=== PATIENT | female | born 1940 | race Caucasian/White ===

== ENCOUNTER 2017-05-18 16:02 | Emergency (ER) | payer MEDICARE, OTHER ==
[~2017-05-18] VITALS: Ht 154.9 cm; Wt 62.0 kg
[~2017-05-18 16:02] MED LIST: ARIMIDEX1 MG OR; ASPIRINCHW 81MG PO; AVAPRO75 MG PO; CALCIUM600 MG PO; CELEBREX100 MG OR; FOLIC ACID1 MG PO; ISOSORB MONO30 MG OR; LEVOTHYROXIN50 MCG OR; LEVOTHYROXIN75 MC1 PO; NEXIUM40 M1 PO; NITROSTAT0.4 MG SL; SIMVASTATIN40 MG PO; TOPROL XL25 MG PO; ULTRAM50 M1 PO; VITAMIN B-122500 MCG SL; VITAMIN D2000 UNI1 PO
[2017-05-18 18:02] LABS: URINE BILIRUBIN - DIPSTICK NEGATIVE (NEGATIVE); URINE BLOOD DIPSTICK NEGATIVE (NEGATIVE); URINE CLARITY CLEAR; URINE COLOR YELLOW; URINE GLUCOSE - DIPSTICK NEGATIVE (NEGATIVE); URINE KETONE NEGATIVE (NEGATIVE); URINE LEUK ESTERASE NEGATIVE (NEGATIVE); URINE NITRITE - DIPSTICK NEGATIVE (Negative); URINE PROTEIN - DIPSTICK NEGATIVE (NEG-TRACE); URINE SPECIFIC GRAVITY <=1.005; URINE UROBILINOGEN - DIPSTICK 0.2 E.U./dL (0.2)
[2017-05-18 18:03] LABS: HEMOGLOBIN 12.8 g/dl (12.0-16.0); IMMATURE GRANULOCYTES 0.5 % (0.0-1.0); MEAN CELL VOLUME 97.7 fL CALC (80.0-100.0); MEAN CORPUSCULAR HGB 32.1 pG CALC (26.0-32.0); MEAN CORPUSCULAR HGB CONC 32.8 g/L CALC (32.0-36.0); NEUT# 4.12 thou/uL (2.00-7.15); RED BLOOD COUNT 3.99 mill/uL (4.20-5.60); RED CELL DISTRI WIDTH 12.9 % (11.5-15.5)
[2017-05-18 18:19] LABS: ALBUMIN 4.3 g/dL (3.2-5.0); ALKALINE PHOSPHATASE 69 u/l (38-126); ANION GAP 18 (6-22 (CALC)); BILIRUBIN, TOTAL 0.7 mg/dL (0.0-1.4); BUN 11 mg/dL (8-23); BUN/CREATININE RATIO 24 (12-20 (CALC)); CALCIUM 9.3 mg/dL (8.4-10.2); CARBON DIOXIDE 24 mmol/l (22-30); CHLORIDE 108 mmol/l (95-108); CREATININE 0.5 mg/dL (0.5-1.0); GFR > 60 ML/MIN (>=60 (CALC)); GFR FOR AFR.AMER. > 60 ML/MIN (>=60 (CALC)); GLUCOSE 88 mg/dL (82-115); POTASSIUM 4.7 mmol/l (3.5-5.1); SGOT/AST 41 u/l (9-36); SGPT/ALT 26 u/l (11-66); SODIUM 145 mmol/l (137-146); TOTAL PROTEIN 7.3 g/dL (6.3-8.2)
[2017-05-18 18:32] LABS: MYOGLOBIN 51 ng/mL (0 - 62)
[2017-05-18 18:40] VITALS: BP 155/77
== END 2017-05-18 18:45 | disposition left against medical advice (07) ==
LOC: ED 16:02
PROVIDERS: Emergency Medicine
PROC: 0HQ0XZZ Repair Scalp Skin, External Approach (ICD-10-PCS; principal; 2017-05-18)
DX: S01.01XA Laceration without foreign body of scalp, initial encounter (principal); I10 Essential (primary) hypertension; E03.9 Hypothyroidism, unspecified; K21.9 Gastro-esophageal reflux disease without esophagitis; W19.XXXA Unspecified fall, initial encounter; Y92.009 Unspecified place in unspecified non-institutional (private) residence as the place of occurrence of the external cause; Z91.81 History of falling; Z85.3 Personal history of malignant neoplasm of breast; Z92.3 Personal history of irradiation

== ENCOUNTER 2017-05-20 11:30 | Emergency (ER) | payer MEDICARE, OTHER ==
[~2017-05-20] VITALS: Ht 154.9 cm; Wt 57.0 kg
[2017-05-20 12:32] VITALS: BP 159/87
== END 2017-05-20 12:32 | disposition home or self-care (01) ==
LOC: ED 11:30
DX: S01.01XD Laceration without foreign body of scalp, subsequent encounter (principal); I10 Essential (primary) hypertension; E03.9 Hypothyroidism, unspecified; K21.9 Gastro-esophageal reflux disease without esophagitis; Z85.3 Personal history of malignant neoplasm of breast; Z92.3 Personal history of irradiation; W19.XXXD Unspecified fall, subsequent encounter

== ENCOUNTER 2017-05-26 09:10 | Emergency (ER) | payer MEDICARE, OTHER ==
[~2017-05-26] VITALS: Ht 154.9 cm; Wt 68.2 kg
[2017-05-26 09:34] VITALS: BP 181/93
== END 2017-05-26 09:40 | disposition home or self-care (01) ==
LOC: ED 09:10
DX: S01.01XD Laceration without foreign body of scalp, subsequent encounter (principal); I10 Essential (primary) hypertension; E03.9 Hypothyroidism, unspecified; K21.9 Gastro-esophageal reflux disease without esophagitis; X58.XXXD Exposure to other specified factors, subsequent encounter; Z92.3 Personal history of irradiation; Z85.3 Personal history of malignant neoplasm of breast

== ENCOUNTER 2017-06-07 10:28 | Emergency (ER) | payer MEDICARE, OTHER ==
[~2017-06-07] VITALS: Ht 152.4 cm; Wt 57.3 kg
[2017-06-07] MEDS ORDERED: KEFLEX500 MG PO (11:22)
[2017-06-07 11:40] VITALS: BP 146/83
== END 2017-06-07 11:56 | disposition home or self-care (01) ==
LOC: ED 10:28
PROC: 0HQ0XZZ Repair Scalp Skin, External Approach (ICD-10-PCS; principal; 2017-06-07)
DX: S01.01XD Laceration without foreign body of scalp, subsequent encounter (principal); E03.9 Hypothyroidism, unspecified; I10 Essential (primary) hypertension; K21.9 Gastro-esophageal reflux disease without esophagitis; Z85.3 Personal history of malignant neoplasm of breast; Z92.3 Personal history of irradiation; X58.XXXD Exposure to other specified factors, subsequent encounter

== ENCOUNTER 2017-06-11 08:42 | Emergency (ER) | payer MEDICARE, OTHER ==
[~2017-06-11] VITALS: Ht 152.4 cm; Wt 65.0 kg
[~2017-06-11 08:42] MED LIST changes: +KEFLEX500 MG PO
[2017-06-11 08:56] VITALS: BP 150/80
== END 2017-06-11 08:55 | disposition home or self-care (01) ==
LOC: ED 08:42
DX: S01.01XD Laceration without foreign body of scalp, subsequent encounter (principal); E03.9 Hypothyroidism, unspecified; I10 Essential (primary) hypertension; K21.9 Gastro-esophageal reflux disease without esophagitis; X58.XXXD Exposure to other specified factors, subsequent encounter; Z85.3 Personal history of malignant neoplasm of breast; Z92.3 Personal history of irradiation

== ENCOUNTER 2017-06-18 11:00 | Emergency (ER) | payer MEDICARE, OTHER ==
[~2017-06-18] VITALS: Ht 152.4 cm; Wt 55.0 kg
[2017-06-18 11:16] VITALS: BP 150/87
== END 2017-06-18 11:35 | disposition home or self-care (01) ==
LOC: ED 11:00
DX: S01.01XD Laceration without foreign body of scalp, subsequent encounter (principal); Z48.02 Encounter for removal of sutures

== ENCOUNTER 2017-06-29 10:20 | Emergency (ER) | payer MEDICARE, OTHER ==
[~2017-06-29] VITALS: Ht 152.4 cm; Wt 50.0 kg
[2017-06-29] MEDS ORDERED: KEFLEX500 MG PO (11:11)
[2017-06-29 11:20] VITALS: BP 118/77
== END 2017-06-29 11:29 | disposition home or self-care (01) ==
LOC: ED 10:20
PROC: 0HQEXZZ Repair Left Lower Arm Skin, External Approach (ICD-10-PCS; principal; 2017-06-29)
DX: S51.812A Laceration without foreign body of left forearm, initial encounter (principal); W45.8XXA Other foreign body or object entering through skin, initial encounter; Y93.9 Activity, unspecified; Y92.018 Other place in single-family (private) house as the place of occurrence of the external cause; W01.0XXA Fall on same level from slipping, tripping and stumbling without subsequent striking against object, initial encounter

== ENCOUNTER 2017-07-14 10:04 | Emergency (ER) | payer MEDICARE, OTHER ==
[~2017-07-14] VITALS: Ht 152.4 cm; Wt 60.0 kg
[2017-07-14] MEDS ORDERED: BACTRIM DS1 TAB PO (10:17)
[2017-07-14 10:31] VITALS: BP 135/77
== END 2017-07-14 10:35 | disposition home or self-care (01) ==
LOC: ED 10:04
DX: S51.812D Laceration without foreign body of left forearm, subsequent encounter (principal); I10 Essential (primary) hypertension; E03.9 Hypothyroidism, unspecified; K21.9 Gastro-esophageal reflux disease without esophagitis; X58.XXXD Exposure to other specified factors, subsequent encounter; Z85.3 Personal history of malignant neoplasm of breast; Z92.3 Personal history of irradiation

== ENCOUNTER 2018-07-31 22:19 | Emergency (ER) | payer MEDICARE, OTHER ==
[~2018-07-31] VITALS: Ht 152.4 cm; Wt 55.4 kg
[~2018-07-31 22:19] MED LIST changes: +BACTRIM DS1 TAB PO
[2018-07-31] MEDS ORDERED: DONEPEZIL5 MG PO (22:48)
[2018-07-31] MEDS ORDERED: SPRITAM500 MG PO (22:50)
[2018-07-31 23:01] LABS: HEMATOCRIT 39.8 % (37.0-47.0); HEMOGLOBIN 12.9 g/dl (12.0-16.0); IMMATURE GRANULOCYTES 0.3 % (0.0-5.0); MEAN CELL VOLUME 96.6 fL CALC (80.0-100.0); MEAN CORPUSCULAR HGB 31.3 pG CALC (26.0-32.0); MEAN CORPUSCULAR HGB CONC 32.4 g/L CALC (32.0-36.0); NEUT# 4.02 thou/uL (2.00-7.15); RED BLOOD COUNT 4.12 mill/uL (4.20-5.60); RED CELL DISTRI WIDTH 12.3 % (11.5-15.5); URINE BILIRUBIN - DIPSTICK NEGATIVE (NEGATIVE); URINE BLOOD DIPSTICK NEGATIVE (NEGATIVE); URINE COLOR YELLOW; URINE GLUCOSE - DIPSTICK NEGATIVE (NEGATIVE); URINE KETONE NEGATIVE (NEGATIVE); URINE LEUK ESTERASE NEGATIVE (NEGATIVE); URINE NITRITE - DIPSTICK NEGATIVE (Negative); URINE PROTEIN - DIPSTICK NEGATIVE (NEG-TRACE); URINE SPECIFIC GRAVITY <=1.005; URINE UROBILINOGEN - DIPSTICK 0.2 E.U./dL (0.2)
[2018-07-31 23:02] LABS: URINE CLARITY SL CLOUDY
[2018-07-31 23:17] LABS: ALKALINE PHOSPHATASE 65 u/l (38-126); BILIRUBIN, TOTAL 0.5 mg/dL (0.0-1.4); BUN 11 mg/dL (8-23); BUN/CREATININE RATIO 24 (12-20 (CALC)); CARBON DIOXIDE 26 mmol/l (22-30); CHLORIDE 105 mmol/l (95-108); CREATININE 0.5 mg/dL (0.5-1.0); GFR > 60 ML/MIN (>=60 (CALC)); GFR FOR AFR.AMER. > 60 ML/MIN (>=60 (CALC)); POTASSIUM 3.7 mmol/l (3.5-5.1); SGOT/AST 19 u/l (9-36); TOTAL PROTEIN 7.2 g/dL (6.3-8.2)
[2018-07-31 23:19] LABS: ALBUMIN 4.1 g/dL (3.2-5.0); ANION GAP 14 (6-22 (CALC)); SODIUM 141 mmol/l (137-146)
[2018-07-31 23:29] LABS: MYOGLOBIN 25 ng/mL (0 - 62)
[2018-07-31] MEDS ORDERED: ANTIVERT PO (23:49)
[2018-08-01 00:40] VITALS: BP 148/72
== END 2018-08-01 00:40 | disposition home or self-care (01) ==
LOC: ED 22:19
PROVIDERS: Family Medicine
DX: H83.02 Labyrinthitis, left ear (principal); R42 Dizziness and giddiness; Y93.K1 Activity, walking an animal; Y92.009 Unspecified place in unspecified non-institutional (private) residence as the place of occurrence of the external cause

== ENCOUNTER → 2018-11-15 | Outpatient (REF) | payer MEDICARE, OTHER ==
[~2018-11-15] MED LIST changes: +ANTIVERT PO; +DONEPEZIL5 MG PO; +SPRITAM500 MG PO
== END | disposition home or self-care (01) ==
LOC: STRESS 09:19 → NUCMED 09:45
PROVIDERS: ATTEND Internal Medicine
DX: I25.119 Atherosclerotic heart disease of native coronary artery with unspecified angina pectoris (principal); I10 Essential (primary) hypertension; R94.31 Abnormal electrocardiogram [ECG] [EKG]
CPT/HCPCS: A9502; J2785

== ENCOUNTER 2019-06-21 09:04 | Emergency (ER) | payer MEDICARE, OTHER ==
[~2019-06-21] VITALS: Ht 152.4 cm; Wt 60.0 kg
[~2019-06-21 09:04] MED LIST changes: +ASPIRIN81 MG PO; +B-12 INJECTION; +KEPPRA250 M1 PO; +LOSARTAN POT50 MG PO
[2019-06-21 11:20] LABS: ALBUMIN 4.3 g/dL (3.2-5.0); ALKALINE PHOSPHATASE 79 u/l (38-126); AMYLASE 38 u/l (30-110); ANION GAP 15 (6-22 (CALC)); BUN 12 mg/dL (8-23); BUN/CREATININE RATIO 21 (12-20 (CALC)); CARBON DIOXIDE 24 mmol/l (22-30); CHLORIDE 104 mmol/l (95-108); CPK 33 u/l (30-165); CREATININE 0.6 mg/dL (0.5-1.0); GFR > 60 ML/MIN (>=60 (CALC)); GFR FOR AFR.AMER. > 60 ML/MIN (>=60 (CALC)); LIPASE 52 u/l (23-300); MAGNESIUM 1.7 mg/dL (1.6-2.3); POTASSIUM 4.1 mmol/l (3.5-5.1); SGOT/AST 24 u/l (9-36); SODIUM 139 mmol/l (137-146); TOTAL PROTEIN 7.1 g/dL (6.3-8.2)
[2019-06-21 11:27] LABS: ETHYL ALCOHOL 0 mg/dl (0-30)
[2019-06-21 11:30] LABS: HEMATOCRIT 41.4 % (37.0-47.0); HEMOGLOBIN 13.3 g/dl (12.0-16.0); IMMATURE GRANULOCYTES 0.8 % (0.0-5.0); MEAN CELL VOLUME 96.5 fL CALC (80.0-100.0); MEAN CORPUSCULAR HGB CONC 32.1 g/L CALC (32.0-36.0); NEUT# 8.83 thou/uL (2.00-7.15); RED BLOOD COUNT 4.29 mill/uL (4.20-5.60); RED CELL DISTRI WIDTH 13.6 % (11.5-15.5)
[2019-06-21 11:54] LABS: ACT PARTIAL THROMBO TIME 24.5 SECONDS (20.0-32.5); INTERNATIONAL NORMALIZED RATIO 0.9 RATIO (0.7-1.3); PROTHROMBIN TIME 9.7 SECONDS (9.0-12.5)
[2019-06-21 13:27] LABS: URINE BILIRUBIN - DIPSTICK NEGATIVE (NEGATIVE); URINE BLOOD DIPSTICK TRACE-INTACT (NEGATIVE); URINE COLOR YELLOW; URINE GLUCOSE - DIPSTICK NEGATIVE (NEGATIVE); URINE KETONE TRACE mg/dL (NEGATIVE); URINE LEUK ESTERASE NEGATIVE (NEGATIVE); URINE NITRITE - DIPSTICK NEGATIVE (Negative); URINE PROTEIN - DIPSTICK NEGATIVE (NEG-TRACE); URINE SPECIFIC GRAVITY 1.025; URINE UROBILINOGEN - DIPSTICK 0.2 E.U./dL (0.2)
[2019-06-21 13:28] LABS: BARBITURATES NEGATIVE (NEGATIVE); COCAINE NEGATIVE (NEGATIVE); METHADONE NEGATIVE (NEGATIVE); OXCYCODONE NEGATIVE (NEGATIVE); TETRAHYDROCANNABIONOL NEGATIVE (NEGATIVE); TRICYLIC ANTIDEPRESSANTS NEGATIVE (NEGATIVE)
[2019-06-21] MEDS ORDERED: LEVOTHYROXIN50 MCG PO (15:03)
[2019-06-21] MEDS ORDERED: DONEPEZIL5 MG PO (15:03)
[2019-06-21 16:25] VITALS: BP 131/63
== END 2019-06-21 16:25 | disposition short-term general hospital (02) ==
LOC: ED 09:04
DX: R90.89 Other abnormal findings on diagnostic imaging of central nervous system (principal); R53.1 Weakness; M25.531 Pain in right wrist; I10 Essential (primary) hypertension; F03.90 Unspecified dementia, unspecified severity, without behavioral disturbance, psychotic disturbance, mood disturbance, and anxiety; Z86.73 Personal history of transient ischemic attack (TIA), and cerebral infarction without residual deficits
CPT/HCPCS: Q9967

== ENCOUNTER 2019-11-21 | Emergency (ER) | payer MEDICARE, OTHER ==
[~2019-11-21] MED LIST changes: +LEVOTHYROXIN50 MCG PO
[2019-11-21 09:53] LABS: HEMATOCRIT 38.3 % (37.0-47.0); HEMOGLOBIN 12.5 g/dl (12.0-16.0); IMMATURE GRANULOCYTES 1.1 % (0.0-5.0); MEAN CORPUSCULAR HGB 31.6 pG CALC (26.0-32.0); MEAN CORPUSCULAR HGB CONC 32.6 g/L CALC (32.0-36.0); NEUT# 6.11 thou/uL (2.00-7.15); RED BLOOD COUNT 3.95 mill/uL (4.20-5.60); RED CELL DISTRI WIDTH 13.6 % (11.5-15.5)
[2019-11-21 09:59] LABS: GFR > 60 ML/MIN (>=60 (CALC)); GFR FOR AFR.AMER. > 60 ML/MIN (>=60 (CALC))
[2019-11-21 10:12] LABS: ALKALINE PHOSPHATASE 64 u/l (38-126); BUN 13 mg/dL (8-23); BUN/CREATININE RATIO 23 (12-20 (CALC)); CARBON DIOXIDE 26 mmol/l (22-30); CHLORIDE 97 mmol/l (95-108); CREATININE 0.6 mg/dL (0.5-1.0); GFR > 60 ML/MIN (>=60 (CALC)); GFR FOR AFR.AMER. > 60 ML/MIN (>=60 (CALC)); LIPASE 33 u/l (23-300); SGOT/AST 26 u/l (9-36); TOTAL PROTEIN 6.7 g/dL (6.3-8.2)
[2019-11-21 10:14] LABS: ANION GAP 12 (6-22 (CALC)); BILIRUBIN, TOTAL 0.9 mg/dL (0.0-1.4); POTASSIUM 4.1 mmol/l (3.5-5.1); SODIUM 131 mmol/l (137-146)
[2019-11-21 11:31] LABS: URINE BILIRUBIN - DIPSTICK NEGATIVE (NEGATIVE); URINE COLOR YELLOW; URINE GLUCOSE - DIPSTICK NEGATIVE (NEGATIVE); URINE KETONE TRACE mg/dL (NEGATIVE); URINE LEUK ESTERASE NEGATIVE (NEGATIVE); URINE NITRITE - DIPSTICK NEGATIVE (Negative); URINE PROTEIN - DIPSTICK NEGATIVE (NEG-TRACE); URINE UROBILINOGEN - DIPSTICK 0.2 E.U./dL (0.2)
[2019-11-21 11:32] LABS: URINE BLOOD DIPSTICK TRACE (NEGATIVE)
[2019-11-21] MEDS ORDERED: VALSARTAN80 MG PO (11:46)
[2019-11-21] MEDS ORDERED: LEVETIRACETAM500 M1 PO (11:48)
[2019-11-21] MEDS ORDERED: MONTELUKAST SOD10 MG PO (11:49)
[2019-11-21] MEDS ORDERED: TRAZODONE50 MG PO (11:50)
[2019-11-21] MEDS ORDERED: TESSALON PER100 MG PO (11:51)
[2019-11-21] MEDS ORDERED: OMEPRAZOLE DR20 MG (11:52)
[2019-11-21] MEDS ORDERED: PREDNISONE5 MG PO (11:52)
== END 2019-11-21 12:15 | disposition home or self-care (01) ==
PROVIDERS: Family Medicine
DX: R31.9 Hematuria, unspecified (principal); R10.11 Right upper quadrant pain; R10.13 Epigastric pain; I10 Essential (primary) hypertension; F03.90 Unspecified dementia, unspecified severity, without behavioral disturbance, psychotic disturbance, mood disturbance, and anxiety; Z86.73 Personal history of transient ischemic attack (TIA), and cerebral infarction without residual deficits
CPT/HCPCS: Q9967

== ENCOUNTER → 2021-05-27 | Outpatient (REF) | payer MEDICARE, OTHER ==
[~2021-05-27] MED LIST changes: +CLOBETASOL0.051 EX; +LEVETIRACETAM500 M1 PO; +LOVASTATIN40 M1 PO; +METOPROL TAR25 MG PO; +MINOCYCLINE HC100 MG PO; +MONTELUKAST SOD10 MG PO; +OMEPRAZOLE DR20 MG; +PREDNISONE5 MG PO; +SYNTHROID75 MCG PO; +TESSALON PER100 MG PO; +TRAZODONE50 MG PO; +VALSARTAN80 MG PO; +VITAMIN D320 MCG
== END | disposition home or self-care (01) ==
LOC: DI 11:26
PROVIDERS: ATTEND Nurse Practitioner
DX: M25.531 Pain in right wrist (principal); M25.532 Pain in left wrist

== ENCOUNTER 2021-06-09 08:10 | Observation (INO) | payer MEDICARE, OTHER ==
[~2021-06-09] VITALS: Ht 152.4 cm; Wt 57.6 kg
[2021-06-09] VITALS (8 sets, daily range): BP systolic 103–136; BP diastolic 57–76
[~2021-06-09 08:10] MED LIST changes: +DIOVAN80 MG PO; +LEVETIRACETAM500 MG PO; +OMEPRAZOLE10 MG PO
--- NOTE | 2021-06-09 11:45 | NUR ---
BEDSIDE REPORT RECEIVED FROM OR NURSE MAI. PT ESCORTED TO FLOOR VIA STRETCHER.
--- NOTE | 2021-06-09 14:30 | NUR ---
PT IN BED SITTING UP. REPORTED TO HAVE ATE MOST OF HER TRAY BUT DIDNT HAVE MUCH OF AN APPETITE. SN ENFORCED INCENTIVE SPIROMETER USE/TEACHING. PT VERBALIZES UNDERSTANDING HAS NO COMPLAINTS/DISTRESS AT THIS TIME.
--- NOTE | 2021-06-09 21:22 | NUR ---
Pt assessment completed and medications administered at this time. Dressing cdi for peace drains, drains w/bulb suction, red bloody output. Surgical incision durmabond closed, cdi.
--- NOTE | 2021-06-09 23:14 | NUR ---
PT SITTING ON THE BSC WITH SUMMER BABYSITTER AT SIDE. SHE REPORTS FEELING STOOL NEEDING TO PASS, BUT IS UNABLE TO PASS HER STOOL. DENIES FEELING BLOATED, OFFERED TO WALK HALLWAY, SHE REPORTS SHE CAN TELL STOOL IS "NEEDING TO PASS." SHE REPORTS FEELING NAUSEA AND URGE TO VOMIT, EMESIS BAG IN HAND. PT WAS MEDICATED AT THIS TIME FOR NAUSEA. MICHAEL DRAINS X2 TO BULB SUCTION, DRAINING RED BLOODY DRAINAGE. DRESSING TO L.BREAST AREA CDI AT THIS TIME AND INCISION INTACT.
[2021-06-10] VITALS: BP 138/72
--- NOTE | 2021-06-10 00:05 | NUR ---
Pt called wanting to sit on the BSC to attempt BM. Pt assessed, there is no s/o impaction at this time. Pt keeps saying "I can feel it." I encouarged her to sit for a few minutes on BSC and then try to walk around with our standby assistance.
--- NOTE | 2021-06-10 01:00 | NUR ---
CAMPUS MANAGER reported that pt is upset thinking she needs an enema. pt has been assessed to not have stool compacting. Upon talking with the pt she started talking about needing to go home, stating that the doctor promised her she would only be here for one night, I reassured her that it had not even been one night. She stated that she "cannot be in the hospital and cannot be sick" because she needs to be home with her . We discussed the timeline since surgery, discussed typical care and process and the need for her to care for herself post-op. She agreed that she wanted to walk to attempt to pass gas. Knurling Machine Tender ambulated pt in hallway, stable on her feet, denies dizziness. Pt denies pain greater than 2/10, just kept saying, I need to have a BM, I can tell. Pt spent 30 minutes sitting on bsc attempting for stool passage to no avail prior to my entering the room. Pt now agreed to try and get rest in the bed. Denies any pain or discomfort greater than 2/10.
[2021-06-10 04:00] VITALS: BP 103/61
--- NOTE | 2021-06-10 04:00 | NUR ---
Pt is sleeping, no s/o distrsses noted. Call light w/in reach.
--- NOTE | 2021-06-10 05:24 | NUR ---
pt medicated as orders provide. IV J-loop placed to IV site and OR tubing removed. Pt was sleeping, but awoke to my voice.
[2021-06-10 07:15] VITALS: BP 114/66
--- NOTE | 2021-06-10 07:15 | NUR ---
BEDSIDE REPORT RECEIVED, PT AWAKE WALKING IN ROOM. PT STATED SHE WAS ALL WET AND ASKED IF THE FLUIDS WERE A CONTINUOUS WATER SUPPLY. STATED HER BED WAS SOAKED WELL. IV WAS DISLODGED AND ON FLOOR. PT CONFUSED, STATED THAT THEY WENT IN MY BRAIN, SN REORIEDNTED AND PT VERBALIZED UNDERSTANDING AND SAID SHE PREVIOUSLY HAD BRAIN SURGERY AND WAS CONFUSED TO WHICH SURGERY THIS WAS AND WHAT HER DRAINS ARE FOR. PT WAS ABLE TO BE REORIENTED. SEIZURE PRECAUTIONS IN PLACE. PT IN CHAIR WITH SIDE TABLE AWAITING BREAKFAST WATCHING TV, WILL CONTUE TO MONITOR.
[2021-06-10] MEDS ORDERED: PERCOCET 5/325M1 TAB PO (08:25)
--- NOTE | 2021-06-10 08:40 | NUR ---
SN NOTICED LAST DOSE OF ANCEF WAS NOT ADMIN D/T PT PULLING IV, REPORTED TO MD. CARDOZA TO D/C PER DR TORRES.
[2021-06-10 09:16] VITALS: BP 114/66
--- NOTE | 2021-06-10 09:26 | NUR ---
Discharge instructions given. Patient verbalizes understanding of same. Discharged in stable condition via Wheelchair to Home with family. All belongings sent with pt. pt walked off floor wo escort, stated she didnt want to wait any longer.
== END 2021-06-10 09:26 | disposition home health service (06) ==
LOC: ORM 08:10 → MS2 10:39
PROVIDERS: ADMIT Surgery; ATTEND Surgery
PROC: 0HTT0ZZ Resection of Right Breast, Open Approach (ICD-10-PCS; principal; 2021-06-09)
PROC: 07B50ZX Excision of Right Axillary Lymphatic, Open Approach, Diagnostic (ICD-10-PCS; 2021-06-09)
DX: C50.911 Malignant neoplasm of unspecified site of right female breast (principal); Z17.0 Estrogen receptor positive status [ER+]; Z86.73 Personal history of transient ischemic attack (TIA), and cerebral infarction without residual deficits
CPT/HCPCS: J0131; J2710

== ENCOUNTER 2021-06-20 10:43 | Emergency (ER) | payer MEDICARE, OTHER ==
[~2021-06-20] VITALS: Ht 152.4 cm; Wt 57.0 kg
[~2021-06-20 10:43] MED LIST changes: +PERCOCET 5/325M1 TAB PO
[2021-06-20 11:25] VITALS: BP 123/75
[2021-06-20 11:39] LABS: HEMOGLOBIN 11.8 g/dl (12.0-16.0); IMMATURE GRANULOCYTES 0.3 % (0.0-5.0); MEAN CELL VOLUME 96.4 fL CALC (80.0-100.0); MEAN CORPUSCULAR HGB 30.7 pG CALC (26.0-32.0); MEAN CORPUSCULAR HGB CONC 31.9 g/dL CAL (32.0-36.0); NEUT# 6.77 thou/uL (2.00-7.15); RED BLOOD COUNT 3.84 mill/uL (4.20-5.60)
[2021-06-20 11:56] LABS: ANION GAP 8 (6-22 (CALC)); BUN 7 mg/dL (8-23); BUN/CREATININE RATIO 11 (12-20 (CALC)); CARBON DIOXIDE 27 mmol/l (22-30); CHLORIDE 103 mmol/l (95-108); CREATININE 0.6 mg/dL (0.5-1.0); GFR > 60 ML/MIN (>=60 (CALC)); GFR FOR AFR.AMER. > 60 ML/MIN (>=60 (CALC)); SODIUM 133 mmol/l (137-146)
[2021-06-20] MEDS ORDERED: OMNI-PAC300 MG PO (12:23)
== END 2021-06-20 12:34 | disposition home or self-care (01) ==
LOC: ED 10:43
PROVIDERS: Family Medicine
DX: R07.89 Other chest pain (principal); C50.911 Malignant neoplasm of unspecified site of right female breast; F32.9 Major depressive disorder, single episode, unspecified; Z90.11 Acquired absence of right breast and nipple; Z86.73 Personal history of transient ischemic attack (TIA), and cerebral infarction without residual deficits

== ENCOUNTER 2021-07-15 11:06 | Emergency (ER) | payer MEDICARE, OTHER ==
[~2021-07-15] VITALS: Ht 152.4 cm; Wt 75.0 kg
[~2021-07-15 11:06] MED LIST changes: +OMNI-PAC300 MG PO
[2021-07-15 12:02] LABS: HEMATOCRIT 38.2 % (37.0-47.0); IMMATURE GRANULOCYTES 0.7 % (0.0-5.0); MEAN CELL VOLUME 95.3 fL CALC (80.0-100.0); MEAN CORPUSCULAR HGB 29.9 pG CALC (26.0-32.0); MEAN CORPUSCULAR HGB CONC 31.4 g/dL CAL (32.0-36.0); NEUT# 5.3 thou/uL (2.00-7.15); RED BLOOD COUNT 4.01 mill/uL (4.20-5.60); RED CELL DISTRI WIDTH 13.4 % (11.5-15.5)
[2021-07-15] MEDS ORDERED: NITROGLYCER0.2 MG/H1 TD (12:02)
[2021-07-15 12:03] LABS: URINE BILIRUBIN - DIPSTICK NEGATIVE (NEGATIVE); URINE BLOOD DIPSTICK TRACE-INTACT (NEGATIVE); URINE COLOR YELLOW; URINE GLUCOSE - DIPSTICK NEGATIVE (NEGATIVE); URINE KETONE NEGATIVE (NEGATIVE); URINE LEUK ESTERASE TRACE (NEGATIVE); URINE PROTEIN - DIPSTICK NEGATIVE (NEG-TRACE); URINE SPECIFIC GRAVITY 1.025; URINE UROBILINOGEN - DIPSTICK 0.2 E.U./dL (0.2)
[2021-07-15 12:08] LABS: URINE NITRITE - DIPSTICK NEGATIVE (Negative)
[2021-07-15 12:20] LABS: ALBUMIN 3.8 g/dL (3.2-5.0); ALKALINE PHOSPHATASE 94 u/l (38-126); AMYLASE 54 u/l (30-110); ANION GAP 12 (6-22 (CALC)); BILIRUBIN, TOTAL 0.5 mg/dL (0.0-1.4); BUN 8 mg/dL (8-23); BUN/CREATININE RATIO 12 (12-20 (CALC)); CARBON DIOXIDE 28 mmol/l (22-30); CHLORIDE 103 mmol/l (95-108); CREATININE 0.7 mg/dL (0.5-1.0); GFR > 60 ML/MIN (>=60 (CALC)); GFR FOR AFR.AMER. > 60 ML/MIN (>=60 (CALC)); LIPASE 37 u/l (23-300); POTASSIUM 3.8 mmol/l (3.5-5.1); SGOT/AST 21 u/l (9-36); SODIUM 139 mmol/l (137-146)
[2021-07-15 12:32] LABS: MYOGLOBIN 40 ng/mL (0 - 62)
[2021-07-15 14:17] VITALS: BP 137/98
== END 2021-07-15 14:17 | disposition home or self-care (01) ==
LOC: ED 11:06
PROVIDERS: Emergency Medicine
DX: R07.89 Other chest pain (principal); I10 Essential (primary) hypertension; C50.911 Malignant neoplasm of unspecified site of right female breast; F32.A Depression, unspecified; Z86.73 Personal history of transient ischemic attack (TIA), and cerebral infarction without residual deficits; Z90.11 Acquired absence of right breast and nipple
CPT/HCPCS: Q9967

== ENCOUNTER 2021-10-18 10:17 | Observation (INO) | payer MEDICARE, OTHER ==
[~2021-10-18] VITALS: Ht 152.4 cm; Wt 56.6 kg
[~2021-10-18 10:17] MED LIST changes: +NITROGLYCER0.2 MG/H1 TD
[2021-10-18 12:24] LABS: HEMATOCRIT 40.9 % (37.0-47.0); HEMOGLOBIN 12.6 g/dl (12.0-16.0); IMMATURE GRANULOCYTES 0.2 % (0.0-5.0); MEAN CELL VOLUME 92.3 fL CALC (80.0-100.0); MEAN CORPUSCULAR HGB 28.4 pG CALC (26.0-32.0); MEAN CORPUSCULAR HGB CONC 30.8 g/dL CAL (32.0-36.0); NEUT# 4.93 thou/uL (2.00-7.15); RED BLOOD COUNT 4.43 mill/uL (4.20-5.60); RED CELL DISTRI WIDTH 14.5 % (11.5-15.5); URINE BLOOD DIPSTICK TRACE-LYSED (NEGATIVE); URINE COLOR YELLOW; URINE GLUCOSE - DIPSTICK NEGATIVE (NEGATIVE); URINE KETONE 40 mg/dL (NEGATIVE); URINE LEUK ESTERASE NEGATIVE (NEGATIVE); URINE PH 5.5 (4.5-8.0); URINE PROTEIN - DIPSTICK NEGATIVE (NEG-TRACE); URINE SPECIFIC GRAVITY >=1.030; URINE UROBILINOGEN - DIPSTICK 0.2 E.U./dL (0.2)
[2021-10-18 12:25] LABS: URINE NITRITE - DIPSTICK NEGATIVE (Negative)
[2021-10-18 12:26] LABS: URINE BILIRUBIN - DIPSTICK NEGATIVE (NEGATIVE)
[2021-10-18 12:40] LABS: ALBUMIN 3.8 g/dL (3.2-5.0); ALKALINE PHOSPHATASE 74 u/l (38-126); ANION GAP 13 (6-22 (CALC)); BILIRUBIN, TOTAL 0.8 mg/dL (0.0-1.4); BUN 13 mg/dL (8-23); BUN/CREATININE RATIO 20 (12-20 (CALC)); CARBON DIOXIDE 27 mmol/l (22-30); CHLORIDE 102 mmol/l (95-108); CREATININE 0.6 mg/dL (0.5-1.0); GFR > 60 ML/MIN (>=60 (CALC)); GFR FOR AFR.AMER. > 60 ML/MIN (>=60 (CALC)); POTASSIUM 4.5 mmol/l (3.5-5.1); SGOT/AST 27 u/l (9-36); SODIUM 137 mmol/l (137-146); TOTAL PROTEIN 6.9 g/dL (6.3-8.2)
[2021-10-18 13:53] LABS: MYOGLOBIN 73 ng/mL (0 - 62)
--- NOTE | 2021-10-18 18:40 | NUR ---
PATIENT HAD RIGHT SIDE PAIN. NEURO NIHSS SCORE A 1 ONLY DUE TO RIGHT LEG PAIN WITH MOVEMENT. PATIENT ORDER FOR LUNCH TRAY BECAUSE SHE WAS HUNGRY, BUT ONLY ATE A COUPLE BITES. SHORT TERM MEMORY ISSUES.
--- NOTE | 2021-10-18 19:31 | NUR ---
REPORT GIVEN TO KAYLA FOR [facility] ROOM 270.
--- NOTE | 2021-10-18 19:50 | NUR ---
TO FLOOR VIA STRETCHER.
--- NOTE | 2021-10-18 20:00 | NUR ---
RECIEVED REPORT FROM CORA STRANGE. PT ARRIVED TO [facility] ROOM 270 VIA STRETCHER ACCOMPAINED BY ER STAFF. PT IS A/OX3 WITH SOME CONFUSION. ASSESSMENT COMPLETED. RESPIRATIONS ARE EVEN AND UNLABORED ON ROOM AIR. LUNG SOUNDS ARE CLEAR. HEART RHYTHM NORMAL WITH TELE IN PLACE, SR PER ER MONITORING. BOWEL SOUNDS ACTIVE, LBM 10/18/21. PULSES STRONG. #20G RAC FLUSHED, SITE APPEARS HEALTHY AND PATENT. SKIN INTACT. PT COMPLAINS OF MILD GENERALIZED PAIN. PT TO BE MEDICATED PER EMAR. PT DENIES OF ANY PAINS OR DISCOMFORTS AT THIS TIME. PT ORIENTED TO ROOM AND CALL SYSTEM, SITTER AT BEDSIDE. SIDE RAILINGS PADDED FOR SEIZURE PRECAUTIONS. ALL SAFTEY PRECAUTIONS ARE IN PLACE WITH CALL LIGHT IN REACH. WILL CONTINUE TO MONITOR.
[2021-10-18 20:30] VITALS: BP 177/84
[2021-10-19] VITALS (7 sets, daily range): BP systolic 115–169; BP diastolic 56–78
--- NOTE | 2021-10-19 | NUR ---
PT SLEEPING IN LOW FOWLERS POSITION. RESPIRATIONS ARE EVEN AND UNLABORED ON ROOM AIR. TELE MONITORING IN PLACE. NO SIGNS OF ANY PAINS OR DISCOMFORTS. ALL SAFTEY PRECAUTIONS ARE IN PLACE WITH CALL LIGHT IN REACH.SITTER AT BEDSIDE. WILL CONTINUE TO MONITOR
--- NOTE | 2021-10-19 03:56 | NUR ---
PT SLEEPING IN SEMI FOWLERS POSITION WITH SITTER AT BEDSIDE. RESPIRATIONS ARE EVEN AND UNLABORED ON ROOM AIR. #20G RAC SITE REMAINS. TELE MONITORING IN PLACE. NO SIGNS OF ANY DISTRESS. ALL SAFETY PRECAUTIONS ARE IN PLACE WITH CALL LIGHT IN REACH. WILL CONTINUE TO MONITOR
[2021-10-19 05:47] LABS: IMMATURE GRANULOCYTES 0.2 % (0.0-5.0); MEAN CELL VOLUME 92.2 fL CALC (80.0-100.0); MEAN CORPUSCULAR HGB 29.1 pG CALC (26.0-32.0); MEAN CORPUSCULAR HGB CONC 31.6 g/dL CAL (32.0-36.0); NEUT# 2.41 thou/uL (2.00-7.15); RED BLOOD COUNT 4.12 mill/uL (4.20-5.60); RED CELL DISTRI WIDTH 14.5 % (11.5-15.5)
[2021-10-19 06:12] LABS: ALBUMIN 3.3 g/dL (3.2-5.0); ALKALINE PHOSPHATASE 64 u/l (38-126); ANION GAP 11 (6-22 (CALC)); BILIRUBIN, TOTAL 0.9 mg/dL (0.0-1.4); BUN 13 mg/dL (8-23); BUN/CREATININE RATIO 23 (12-20 (CALC)); CARBON DIOXIDE 25 mmol/l (22-30); CHLORIDE 104 mmol/l (95-108); CREATININE 0.6 mg/dL (0.5-1.0); GFR > 60 ML/MIN (>=60 (CALC)); GFR FOR AFR.AMER. > 60 ML/MIN (>=60 (CALC)); POTASSIUM 3.6 mmol/l (3.5-5.1); SGOT/AST 25 u/l (9-36); SODIUM 136 mmol/l (137-146)
--- NOTE | 2021-10-19 08:00 | NUR ---
ASSESSMENT AND VITALS ALLOWED AT THIS TIME. LUNG SOUNDS ARE CLEAR UPPER/LOWER LOBES ANTERIOR AND POSTERIOR. HEART SOUNDS ARE REGULAR. TELE MONITOR IN PLACE, CONTINOUS MONITORING BY ED. PT IS ALERT AND ORIENATED X3 BUT CAN ALSO BE CONFUSED WITH WHAT IS GOING ON OR STARTS TO RAMBLE ABOUT SOMETHING ELSE. IV LOCATED ON LAC 20G, SALINE LOCK. FLUSHED WITH NO RESIATNCE. PT HAS LEFT LIMB ALERT BAND IN PLACE. RADIAL AND PEDAL STRONG. FALL/SAFTEY PRECAUTIONS IN PLACE. CALL LIGHT IS WITHIN REACH
--- NOTE | 2021-10-19 10:56 | NUR ---
Teleneuro rounding completed no further Neuro intervention needed. Primary MD notified. NIHSS 0
--- NOTE | 2021-10-19 12:00 | NUR ---
PT IS EATING LUNCH AT THIS TIME. NO DISTRESS NOTED. TELE MONITOR IN PLACE. SITTER AT BEDSIDE. VOICES NO PAIN AT THIS TIME. FALL/SAFETY PRECAUTION IN PLACE. CALL LIGHT IS WITHIN REACH.
--- NOTE | 2021-10-19 15:11 | NUR ---
FAMILY MEMBER AT BEDSIDE.
--- NOTE | 2021-10-19 19:00 | NUR ---
REPORT RECEIVED FROM Quinn BOLIVAR RN. CARE OF PT ASSUMED AT THIS TIME.
--- NOTE | 2021-10-19 19:24 | NUR ---
CALL RECEIVED FROM DR. FALL. ORDER TO TRANSFER TO [facility] UNIT AND D/C TELEMETRY RECEIVED.
--- NOTE | 2021-10-19 20:25 | NUR ---
TELEPHONE REPORT GIVEN TO KIMBERLEY SHEPHERD.
--- NOTE | 2021-10-19 20:25 | NUR ---
PT TRANSFERRED TO ROOM 270 VIA WC, ACCOMPANIED BY NURSE.
--- NOTE | 2021-10-20 02:57 | NUR ---
PATIENT BECAME AGGITATED AND CONFUSED. PT IS A FALL RISK. RN WAS CONCERNED THAT THE PT MAY FALL WHEN ATTEMPTING TO GET OUT OF BED ON HER OWN. RN ATTEMPTED TO REORIENT THE PT. PT CONTINUED TO REFUSE TO LAY IN BED, CONTINUED TO GET OUT OF BED ALONE AND INSISTED ON SEEING HER WHO IS ON THE SAME UNIT. AFTER TAKING THE PT TO SEE HER TWICE AND SPEAKING WITH HER WHO ALSO ATTEMPTED TO CALM AND REORIENT THE PT, SHE CONTINUED TO BE AGGITATED, CONFUSED AND ARGUE ABOUT GOING TO BED, DESPITE IT BEING 0200. RN INTENDED TO GIVE THE PT IV ATIVAN, PER THE PRN ORDERS AND PULLED THE MEDICATION FROM THE MEDICATION ROOM. THE PATIENT REFUSED TO TAKE THE MEDICATION SEVERAL TIMES AND SEVERAL ATTEMPTS WERE MADE BY SEVERAL NURSES. THE MEDICATION WAS NOT GIVEN, WASTED AND DOCUMENTED IN MEDICATION SYSTEM ACCORDINGLY WITH ADDITIONAL RN WITNESS. AFTER APPROXIMATELY ONE HOUR OF REORIENTING THE PT, THE PT AGREED TO LAY DOWN. BED ALARM IS ON AND SAFETY MEASURES ARE IN PLACE. BLACK OFF WORKER, LUIS WAS NOTIFIED.
[2021-10-20 04:00] VITALS: BP 165/69
[2021-10-20 05:11] LABS: HEMATOCRIT 40.8 % (37.0-47.0); HEMOGLOBIN 12.9 g/dl (12.0-16.0); MEAN CELL VOLUME 91.1 fL CALC (80.0-100.0); MEAN CORPUSCULAR HGB 28.8 pG CALC (26.0-32.0); MEAN CORPUSCULAR HGB CONC 31.6 g/dL CAL (32.0-36.0); RED BLOOD COUNT 4.48 mill/uL (4.20-5.60); RED CELL DISTRI WIDTH 14.2 % (11.5-15.5)
[2021-10-20 05:35] LABS: ANION GAP 15 (6-22 (CALC)); BUN 12 mg/dL (8-23); BUN/CREATININE RATIO 22 (12-20 (CALC)); CARBON DIOXIDE 22 mmol/l (22-30); CHLORIDE 102 mmol/l (95-108); CREATININE 0.5 mg/dL (0.5-1.0); GFR > 60 ML/MIN (>=60 (CALC)); GFR FOR AFR.AMER. > 60 ML/MIN (>=60 (CALC)); MAGNESIUM 1.6 mg/dL (1.6-2.3); POTASSIUM 3.8 mmol/l (3.5-5.1); SODIUM 136 mmol/l (137-146)
--- NOTE | 2021-10-20 08:00 | NUR ---
ASSESSMENT AND VITALS ALLOWED AT THIS TIME. LUNG SOUNDS CLEAR UPPER/LOWER LOBES ANTERIOR AND POSTERIOR. PT IS REALLY CONFUSED THIS MORNING WITH SLIGHT AGGRESIVNESS ABOUT MEDICATION. EXPLAINED TO PT ABOUT MEDICATION. REFUSES TO TAKE THEM. BOWEL SOUNDS ACTIVE X4. SKIN WDI. RADIAL/ PEDAL PULSE STRONG. CALL LIGHT IS WITHIN REACH. FALL/SAFTEY PRECAUTIONS IN PLACE.
[2021-10-20 08:46] VITALS: BP 149/62
--- NOTE | 2021-10-20 09:50 | NUR ---
Discharge instructions given. Patient verbalizes understanding of same. Discharged in stable condition via Wheelchair to Home with staff. All belongings sent with pt. IV LAC 22G, CATHETER INTACT.
--- NOTE | 2021-10-20 13:28 | NUR ---
Attempted treatment this am but transport arrived to move pt to Rehab.
== END 2021-10-20 09:49 ==
LOC: ED 10:17 → ED-I 16:30 → ED 18:32 → MS2 18:33 → ICU 10-19 18:35 → MS2 10-19 19:25
PROVIDERS: Emergency Medicine; Nurse Practitioner; ADMIT Internal Medicine; ATTEND Internal Medicine
DX: R53.1 Weakness (principal); R29.6 Repeated falls; R41.0 Disorientation, unspecified; I10 Essential (primary) hypertension; I67.82 Cerebral ischemia; G40.909 Epilepsy, unspecified, not intractable, without status epilepticus; F10.10 Alcohol abuse, uncomplicated; F32.A Depression, unspecified; S60.211A Contusion of right wrist, initial encounter; W19.XXXA Unspecified fall, initial encounter; Z85.3 Personal history of malignant neoplasm of breast; Z86.73 Personal history of transient ischemic attack (TIA), and cerebral infarction without residual deficits; Z20.822 Contact with and (suspected) exposure to COVID-19
CPT/HCPCS: J2060

== ENCOUNTER 2021-10-31 19:47 | Observation (INO) | payer MEDICARE, OTHER ==
[~2021-10-31] VITALS: Ht 152.4 cm; Wt 59.0 kg
--- NOTE | 2021-10-31 19:47 | NUR ---
PT TO ED ROOM 13 VIA EMS STRETCHER FOR TRIAGE.
[2021-10-31 20:22] LABS: GFR > 60 ML/MIN (>=60 (CALC)); GFR FOR AFR.AMER. > 60 ML/MIN (>=60 (CALC))
[2021-10-31 20:30] LABS: HEMATOCRIT 38.2 % (37.0-47.0); HEMOGLOBIN 11.7 g/dl (12.0-16.0); IMMATURE GRANULOCYTES 0.4 % (0.0-5.0); MEAN CELL VOLUME 92.7 fL CALC (80.0-100.0); MEAN CORPUSCULAR HGB 28.4 pG CALC (26.0-32.0); MEAN CORPUSCULAR HGB CONC 30.6 g/dL CAL (32.0-36.0); RED BLOOD COUNT 4.12 mill/uL (4.20-5.60); RED CELL DISTRI WIDTH 14.5 % (11.5-15.5)
[2021-10-31 20:45] LABS: ALBUMIN 3.6 g/dL (3.2-5.0); ALKALINE PHOSPHATASE 67 u/l (38-126); BUN 15 mg/dL (8-23); BUN/CREATININE RATIO 24 (12-20 (CALC)); CHLORIDE 96 mmol/l (95-108); CREATININE 0.6 mg/dL (0.5-1.0); GFR > 60 ML/MIN (>=60 (CALC)); GFR FOR AFR.AMER. > 60 ML/MIN (>=60 (CALC)); LIPASE 69 u/l (23-300); MAGNESIUM 1.9 mg/dL (1.6-2.3); POTASSIUM 4.1 mmol/l (3.5-5.1); SGOT/AST 21 u/l (9-36); SODIUM 137 mmol/l (137-146); TOTAL PROTEIN 6.9 g/dL (6.3-8.2)
--- NOTE | 2021-10-31 20:45 | NUR ---
PT RESTING ON ED BED, MADE AWARE OF PLAN OF CARE. PT STABLE
[2021-10-31 20:50] LABS: ACT PARTIAL THROMBO TIME 23.4 SECONDS (20.0-32.5); ANION GAP 16 (6-22 (CALC)); BILIRUBIN, TOTAL 0.3 mg/dL (0.0-1.4); CARBON DIOXIDE 29 mmol/l (22-30); INTERNATIONAL NORMALIZED RATIO 0.9 RATIO (0.7-1.3); PROTHROMBIN TIME 9.3 SECONDS (9.0-12.5)
--- NOTE | 2021-10-31 21:45 | NUR ---
PT TAKEN OFF BED MYERS. YENY AREA CLEANSED. PT STABLE.
--- NOTE | 2021-10-31 22:25 | NUR ---
PT UPDATED ON POC AND REASSURED. PT CONCERNED ABOUT HER AND HOW LONG SHE WILL BE IN THE HOSPITAL. PT STABLE.
[2021-11-01 00:36] LABS: URINE BILIRUBIN - DIPSTICK NEGATIVE (NEGATIVE); URINE BLOOD DIPSTICK NEGATIVE (NEGATIVE); URINE COLOR YELLOW; URINE GLUCOSE - DIPSTICK NEGATIVE (NEGATIVE); URINE KETONE NEGATIVE (NEGATIVE); URINE LEUK ESTERASE TRACE (NEGATIVE); URINE NITRITE - DIPSTICK NEGATIVE (Negative); URINE PROTEIN - DIPSTICK NEGATIVE (NEG-TRACE); URINE SPECIFIC GRAVITY <=1.005; URINE UROBILINOGEN - DIPSTICK 0.2 E.U./dL (0.2)
[2021-11-01 01:13] LABS: C-REACTIVE PROTEIN 0.6 mg/dL (0-0.9); CHOLESTEROL HDL RATIO 3.7 (<4.4 (CALC)); MAGNESIUM 1.9 mg/dL (1.6-2.3)
--- NOTE | 2021-11-01 01:35 | NUR ---
REPORT RECEIVED AT BEDSIDE FROM Raúl HAGEN RN IN ED.
--- NOTE | 2021-11-01 01:40 | NUR ---
PT TRANSFERRED TO ICU
--- NOTE | 2021-11-01 01:40 | NUR ---
PT BROUGHT UP TO UNIT FROM ED VIA STRETCHED BY LENS GAUGER. PT ADMITTED TO ICU#4. ASSISTED TO SLIDE OVER ONTO BED FROM STRETCHER.
--- NOTE | 2021-11-01 01:50 | NUR ---
PT IS ALERT, ORIENTED, AND CONFUSED. STATES SHE DOES NOT REMEMBER HOW SHE GOT TO THE HOSPITAL OR WHY. PT VERBALLY RE-ORIENTED. PT SEEMS TO ACCEPT ATTEMPT AT RE-ORIENTATION. DENIES R-SIDED PAIN, WEAKNESS OR PARESTHESIA. FARM[employer] ARE EQUAL B/L. NIH 0. MEND NEGATIVE. PT ADMITS TO CONFUSION AND FORGETFULNESS. PLAN OF CARE REVIEWED. PT VERBALIZES UNDERSTANDING AND AGREEMENT.
[2021-11-01 02:00] VITALS: BP 166/78
--- NOTE | 2021-11-01 02:01 | NUR ---
PT EXPRESSES CONCERN OVER IV SECUREMENT. LIGHTLY WRAPPED WITH COBAN AND ELASTICE NETTING PLACED OVER TOP TO PROTECT IV.
--- NOTE | 2021-11-01 02:38 | NUR ---
PT APPEARS TO BE SLEEPING COMFORTABLY. EYES CLOSED. RESPIRATIONS REGULAR AND UNLABORED. SB 50'S ON MONITOR. CALL LUA REMAINS WITHIN REACH.
[2021-11-01 04:00] VITALS: BP 157/67
--- NOTE | 2021-11-01 04:30 | NUR ---
PT APPEARS TO BE SLEEPING COMFORTABLY. EYES CLOSED. RESPIRATIONS REGULAR AND UNLABORED. SB 50'S ON MONITOR. CALL LUA REMAINS WITHIN REACH.
--- NOTE | 2021-11-01 05:16 | NUR ---
PT WAKES, STATES "I'M GETTING DRESSED AND GOING HOME." PT DISORIENTED TO PLACE AND DOSE NOT REMEMBER HOW SHE GOT HERE OR WHERE SHE IS. VERBALLY RE-ORIENTED AT LENGTH. STATES "I GUESS I DON'T TRUST YOU". ALLOWED PT TO VERBALIZE HER FEARS AND CONCERNS. PT AGREES TO LAY OWN AND TRY TO REST UNTIL AM WHEN DOCTORS ARRIVE. PT IS CONCERNED STAFF AT HER REHAB FACILITY WILL NOT KNOW WHERE SHE IS. ASSURED PT REHAB STAFF AWARE OF HER WHERABOUTS THEY FACILITATED EMS TRANSPORT TO THE HOSPITAL.
--- NOTE | 2021-11-01 05:57 | NUR ---
PT REFUSES TO TAKE SYNTHROID THIS AM.
[2021-11-01 06:00] VITALS: BP 150/77
[2021-11-01 06:14] LABS: HEMATOCRIT 38.4 % (37.0-47.0); MEAN CELL VOLUME 91.6 fL CALC (80.0-100.0); MEAN CORPUSCULAR HGB 28.6 pG CALC (26.0-32.0); MEAN CORPUSCULAR HGB CONC 31.3 g/dL CAL (32.0-36.0); RED BLOOD COUNT 4.19 mill/uL (4.20-5.60); RED CELL DISTRI WIDTH 14.3 % (11.5-15.5)
[2021-11-01 06:33] LABS: ANION GAP 10 (6-22 (CALC)); BUN 13 mg/dL (8-23); BUN/CREATININE RATIO 24 (12-20 (CALC)); CALCULATED LDLCHOLESTEROL 105 mg/dL (62-129 (CALC)); CARBON DIOXIDE 28 mmol/l (22-30); CHLORIDE 104 mmol/l (95-108); CHOLESTEROL HDL RATIO 3.8 (<4.4 (CALC)); CREATININE 0.5 mg/dL (0.5-1.0); GFR > 60 ML/MIN (>=60 (CALC)); GFR FOR AFR.AMER. > 60 ML/MIN (>=60 (CALC)); HDL CHOLESTEROL 48 mg/dL (>=40); MAGNESIUM 1.7 mg/dL (1.6-2.3); POTASSIUM 4.3 mmol/l (3.5-5.1); SODIUM 138 mmol/l (137-146); TOTAL CHOLESTEROL 183 mg/dl (0-199); TOTAL TRIGLYCERIDES 151 mg/dl (30-149); VLDL CHOLESTROL 30 mg/dl (0-48 (CALC))
[2021-11-01 08:00] VITALS: BP 166/113
--- NOTE | 2021-11-01 08:00 | NUR ---
PATIENT LAYING IN BED AWAKE AT THIS TIME AND ALERT AND ORIENTED X 3. PATIENT DENIES ANY PAIN AND REPORTS HER PAIN LEVEL A "0" OUT OF A PAIN SCALE OF 0-10. NEURO CHECKS DONE AT THIS TIME AND ARE NEGATIVE FOR ANY DEFICITS. GRASP ARE STRONG PUPILS ARE PERRL. BOWEL SOUNDS ARE PRESENT IN ALL FOUR QUADS AND LUNG FIELD ARE CLEAR. SIDERAILS ARE UP X 2 AND CALL LIGHT WITHIN REACH AND BED ALARM ACTIVATED AT THIS TIME FOR SAFETY. HEART MONITOR SHOWING SINUS RHYTMA AT 64 BPM. SPO2 IS 84 BUT RECHECK OF SPO2 AND IT IS READING 92%. WILL CONTINUE TO MONITOR AT THIS TIME.
--- NOTE | 2021-11-01 09:29 | NUR ---
DR. CHANG IN TO SEE PATIENT AT THIS TIME.
--- NOTE | 2021-11-01 09:50 | NUR ---
PHYSICAL THERAPY IN TO WORK WITH PATIENT AT THIS TIME.
--- NOTE | 2021-11-01 10:28 | NUR ---
PATIENT TAKEN DOWN TO MRI AT THIS TIME.
--- NOTE | 2021-11-01 11:27 | NUR ---
PATIENT RETURNED TO UNIT FROM MRI, NEELAM ASSISTED TO BSC AND HAD LARGE BM AT THIS TIME. PATIENT WAS THEN ASSISTED BACK TO BED AT THIS TIME WITH SIDERAILS UP X2 AND CALL LIGHT HARRISON MEDINA.
[2021-11-01 12:00] VITALS: BP 176/102
--- NOTE | 2021-11-01 12:00 | NUR ---
PATIENT SITTING UP ON BEDSIDE AT THIS TIME. DR. CHANG AND DUY FUCHS RN WALL MIRROR DEPARTMENT SUPERVISOR AND DID SPEAK TO PATIENT REGARDING THE MRI RESULTS AT THIS TIME. PATIENT WAS EDUCATED ON FINDINGS. SIDERAILS ARE UP CALL LIGHT IS WITHIN REACH AT THIS TIME WILL CONTINUE TO MONITOR. GEAR TECHNICIAN SHOWS HR AT 56 S/B. PATIENT ADVISED THAT SHE WOULD BE D/C'D TODAY.
[2021-11-01] MEDS ORDERED: PLAVIX75 MG PO (12:44)
--- NOTE | 2021-11-01 13:20 | NUR ---
PATIENT D/C AT THIS TIME. PATIENT IV REMOVED AND TIP INTACT PATIENT D/C INSTRUCTIONS GONE OVER WITH PATIENT.
--- NOTE | 2021-11-01 13:26 | NUR ---
REPORT CALLED TO NURSE MCMANUS AT [facility] AT THIS TIME.
--- NOTE | 2021-11-01 14:15 | NUR ---
Discharge instructions given. Patient verbalizes understanding of same. Discharged in stable condition via Wheelchair to [facility] with *Other. All belongings sent with pt. REPORT CALLED TO YONATHAN AT [facility]
[2021-11-01] MEDS ORDERED: LIPITOR80 M1 PO (15:02)
== END 2021-11-01 14:15 ==
LOC: ED 19:47 → ED-I 23:47 → ED 11-01 00:05 → ICU 11-01 00:06
PROVIDERS: ADMIT Hospitalist; ATTEND Hospitalist
DX: I63.232 Cerebral infarction due to unspecified occlusion or stenosis of left carotid arteries (principal); R53.1 Weakness; R20.0 Anesthesia of skin; R41.0 Disorientation, unspecified; R29.700 NIHSS score 0; I10 Essential (primary) hypertension; E78.5 Hyperlipidemia, unspecified; F03.90 Unspecified dementia, unspecified severity, without behavioral disturbance, psychotic disturbance, mood disturbance, and anxiety; G40.909 Epilepsy, unspecified, not intractable, without status epilepticus; E03.9 Hypothyroidism, unspecified; K21.9 Gastro-esophageal reflux disease without esophagitis; Z86.73 Personal history of transient ischemic attack (TIA), and cerebral infarction without residual deficits; Z85.3 Personal history of malignant neoplasm of breast; Z20.822 Contact with and (suspected) exposure to COVID-19
CPT/HCPCS: Q9967